=== PATIENT | female | born 1945 ===

== ENCOUNTER 2018-05-21 09:40 | Outpatient (CLI) | payer OTHER ==
[~2018-05-21] VITALS: Ht 152.4 cm; Wt 52.2 kg
== END 2018-05-21 10:00 | disposition home or self-care (01) ==
LOC: OFIC 805 09:40
DX: H91.8X3 Other specified hearing loss, bilateral (principal); H73.893 Other specified disorders of tympanic membrane, bilateral; H61.23 Impacted cerumen, bilateral